=== PATIENT | male | born 1950 | race Two or more races ===

== ENCOUNTER 2023-06-14 14:41 | Emergency (ER) | payer OTHER ==
[~2023-06-14] VITALS: Ht 165.1 cm; Wt 69.1 kg
[2023-06-14] MEDS ORDERED: LOSA-381 PO (14:52)
[2023-06-14 14:53] VITALS: BP 157/99; PULSE 94; RESP 16; TEMP 98.4
== END 2023-06-14 17:50 | disposition left against medical advice (07) ==
LOC: EMS 14:41
DX: S61.217A Laceration without foreign body of left little finger without damage to nail, initial encounter (principal); I10 Essential (primary) hypertension; Z98.890 Other specified postprocedural states; W23.0XXA Caught, crushed, jammed, or pinched between moving objects, initial encounter; Y93.89 Activity, other specified; Y92.89 Other specified places as the place of occurrence of the external cause; Y99.0 Civilian activity done for income or pay
CPT/HCPCS: 99281; Z7502